=== PATIENT | male | born 1940 | race African-American/Black ===

== ENCOUNTER 2025-05-17 10:42 | Emergency (ER) | payer MEDICARE, MEDICAID ==
[~2025-05-17] VITALS: Ht 175.3 cm; Wt 82.0 kg
[2025-05-17 10:44] VITALS: BP 96/63; PULSE 70; RESP 20; TEMP 98; O2SAT 94
== END 2025-05-17 11:00 | disposition left against medical advice (07) ==
LOC: ER 10:42
DX: R06.02 Shortness of breath (principal); I10 Essential (primary) hypertension
CPT/HCPCS: 99282